=== PATIENT | male | born 1945 | race Hispanic/Latino ===

== ENCOUNTER → 2019-09-19 | Outpatient (CLI) | payer MEDICARE ==
[~2019-09-19] MED LIST: ASPI-1012 PO; HYDR-4457 PO; ROSU40TA21 PO; SLEEPING PILL PO; TYLENOL PO
[2019-09-19 14:01] LABS: BASOPHILS % (AUTO) 0.3 % (0.0-5.0); EOSINOPHILS % (AUTO) 1.6 % (0.0-8.0); LYMPHOCYTES % (AUTO) 21.2 % (21.0-51.0); MEAN CORPUSCULAR HGB CONC 33.3 g/dL (32.0-36.0); MEAN CORPUSCULAR VOLUME 89.9 fL (79-99); MONOCYTES % (AUTO) 11.5 % (3.0-13.0); NEUTROPHILS % (AUTO) 65.1 % (40.0-77.0); PLATELET COUNT (AUTO) 177 K/uL (130-400); RED BLOOD CELL COUNT(AUTO) 4.67 MIL/uL (4.50-6.20); RED CELL DISTRIBUTION WIDTH 13.1 % (11.0-15.5); WHITE BLOOD COUNT (AUTO) 7.4 K/uL (4.8-10.8)
[2019-09-19 14:09] LABS: CREATININE 0.7 mg/dL (0.5-1.5); POTASSIUM 4.5 mmol/L (3.5-5.1)
== END | disposition home or self-care (01) ==
LOC: LAB 13:05
PROVIDERS: ATTEND Urology
DX: R31.29 Other microscopic hematuria (principal)
CPT/HCPCS: 36415; 80048; 85025

== ENCOUNTER → 2019-09-20 | Outpatient (CLI) | payer MEDICARE ==
[~2019-09-20] MED LIST changes: +IOHEXOL-350 75 ML VIAL IV ONE
== END | disposition home or self-care (01) ==
LOC: RAH 08:50
PROVIDERS: ATTEND Urology
DX: M43.8X4 Other specified deforming dorsopathies, thoracic region (principal); R31.9 Hematuria, unspecified; R31.29 Other microscopic hematuria; N28.1 Cyst of kidney, acquired
CPT/HCPCS: 74178; Q9967

== ENCOUNTER 2021-01-09 09:00 | Observation (INO) | payer MEDICARE ==
[~2021-01-09] VITALS: Ht 162.6 cm; Wt 78.0 kg
[~2021-01-09 09:00] MED LIST changes: -ASPI-1012 PO; -HYDR-4457 PO; -IOHEXOL-350 75 ML VIAL IV ONE; -SLEEPING PILL PO; -TYLENOL PO
[2021-01-10 14:41] VITALS: BP 149/76
[2021-01-13] MEDS ORDERED: METF-444 PO (15:19)
[2021-01-14] VITALS (24 sets, daily range): BP systolic 106–151; BP diastolic 46–80
[2021-01-14] MEDS ORDERED: 0.9%NACL 1000ML 1,000 ML IV ONE (08:22)
[2021-01-14] MEDS: CEFAZOLIN SODIUM 1 GM VIAL IVP ONE ×2 (08:55→10:58)
[2021-01-14] MEDS ORDERED: ACET-2743 PO (09:23)
[2021-01-14] MEDS ORDERED: NAPR-1023 PO (09:23)
[2021-01-14] MEDS ORDERED: ASCO250T70 PO (09:23)
[2021-01-14] MEDS ORDERED: CYAN250014 PO (09:23)
[2021-01-14] MEDS ORDERED: TRANEXAMIC ACID 1000MG/10ML ONE ×2 (10:13)
[2021-01-14] MEDS ORDERED: PROPOFOL 10 MG/ML 20ML VIAL IV ONE ×2 (10:22→11:31)
[2021-01-14] MEDS ORDERED: GLYCOPYRROLATE 1 MG/5 ML SYRINGE ONE (10:22)
[2021-01-14] MEDS ORDERED: LIDOCAINE PF 100MG/5ML (2%) SYRINGE 5ML ONE (10:22)
[2021-01-14] MEDS ORDERED: FENTANYL CITRATE PF 50 MCG/1 ML 2ML VIAL ONE ×2 (10:23→12:51)
[2021-01-14] MEDS ORDERED: NEOSTIGMINE 5MG/5ML SYR IV ONE (10:23)
[2021-01-14] MEDS ORDERED: MIDAZOLAM HCL 1 MG/ML 2ML VIAL ONE (10:23)
[2021-01-14] MEDS ORDERED: ROCURONIUM 10MG/1ML SYR 10 MG/ML ML ONE (10:23)
[2021-01-14] MEDS ORDERED: CEFAZOLIN SODIUM 1 GM VIAL ONE ×4 (10:41→10:42)
[2021-01-14] MEDS ORDERED: ROPIVACAINE 0.5% 5MG/ML 30ML IJ ONE (10:44)
[2021-01-14] MEDS ORDERED: FERROUS FUMARATE 324 MG TABLET PO PRN (13:00)
[2021-01-14] MEDS ORDERED: POTASSIUM CHLORIDE 10% ELIXIR 20 MEQ/15 ML UDCUP PO PRN (13:00)
[2021-01-14] MEDS ORDERED: DiphenhydrAMINE HCL 50 MG/ML VIAL IVP PRN (13:00)
[2021-01-14] MEDS ORDERED: LIDOCAINE HCL-MPF 1% 2ML VIAL IV PRN (13:00)
[2021-01-14] MEDS ORDERED: ONDANSETRON 4MG INJ IVP PRN (13:00)
[2021-01-14] MEDS ORDERED: KCL 20 MEQ ERTAB PO PRN (13:00)
[2021-01-14] MEDS ORDERED: CALCIUM CARB 500MG PO PRN (13:00)
[2021-01-14] MEDS: ACETAMINOPHEN 500 MG TABLET PO SCH ×2 (13:00→20:20)
[2021-01-14] MEDS ORDERED: OXYCODONE HCL 5 MG TAB PO PRN (13:00)
[2021-01-14] MEDS ORDERED: POTASSIUM CHLORIDE 20MEQ/100ML 100 ML IV PRN (13:00)
[2021-01-14] MEDS ORDERED: TEMAZEPAM 15 MG CAPSULE PO PRN (13:00)
[2021-01-14] MEDS ORDERED: TRAMADOL HCL 50 MG TABLET PO PRN (13:00)
[2021-01-14] MEDS: 0.9%NACL 1000ML 1,000 ML IV SCH ×2 (13:00→22:29)
[2021-01-14] MEDS ORDERED: MEPERIDINE-PF 25 MG/ML SYG ONE ×2 (13:42→13:52)
[2021-01-14] MEDS: OXYCODONE HCL 5 MG TAB PO PRN ×2 (14:34→18:37)
[2021-01-14] MEDS: KETOROLAC 15MG/ML VIAL (15MG/ML) IV PRN ×2 (16:08→22:29)
[2021-01-14] MEDS: INSULIN HUMULIN R 100 UNIT/ML 3ML SQ SCH ×2 (17:07→20:21)
[2021-01-14] MEDS: CEFAZOLIN SODIUM 1 GM VIAL IVP SCH (17:09)
[2021-01-14] MEDS: ASPIRIN 81MG CHEW TAB PO SCH (20:19)
[2021-01-14] MEDS: CELECOXIB 200 MG CAP PO SCH (20:19)
[2021-01-14] MEDS: FAMOTIDINE 20MG TAB PO SCH (20:19)
[2021-01-14] MEDS: PREGABALIN 25 MG CAP PO SCH (20:19)
[2021-01-15] MEDS: CEFAZOLIN SODIUM 1 GM VIAL IVP SCH (02:05)
[2021-01-15 04:45] VITALS: BP 124/67
[2021-01-15 05:15] LABS: HEMATOCRIT 38.1 % (42-54); MEAN CORPUSCULAR HEMOGLOBIN 31.6 pg (27.0-33.0); MEAN CORPUSCULAR HGB CONC 33.6 g/dL (32.0-36.0); MEAN CORPUSCULAR VOLUME 94.1 fL (79-99); RED BLOOD CELL COUNT(AUTO) 4.05 MIL/uL (4.50-6.20); RED CELL DISTRIBUTION WIDTH 13.1 % (11.0-15.5); WHITE BLOOD COUNT (AUTO) 11.6 K/uL (4.8-10.8)
[2021-01-15] MEDS: ACETAMINOPHEN 500 MG TABLET PO SCH ×3 (05:22→19:52)
[2021-01-15 05:26] LABS: CREATININE 0.7 mg/dL (0.5-1.5); POTASSIUM 4.6 mmol/L (3.5-5.1)
[2021-01-15] MEDS: KETOROLAC 15MG/ML VIAL (15MG/ML) IV PRN (07:07)
[2021-01-15] MEDS: INSULIN HUMULIN R 100 UNIT/ML 3ML SQ SCH ×4 (07:30→21:14)
[2021-01-15 08:01] VITALS: BP 135/67
[2021-01-15] MEDS: 0.9%NACL 1000ML 1,000 ML IV SCH (08:36)
[2021-01-15] MEDS: TAMSULOSIN HCL 0.4 MG CAP.ER.24H PO SCH (08:38)
[2021-01-15] MEDS: PREGABALIN 25 MG CAP PO SCH ×2 (08:40→19:51)
[2021-01-15] MEDS: POLYETHYLENE GLYCOL 3350 17 GM POWD.PACK PO SCH (08:40)
[2021-01-15] MEDS: FAMOTIDINE 20MG TAB PO SCH ×2 (08:40→19:51)
[2021-01-15] MEDS: CELECOXIB 200 MG CAP PO SCH ×2 (08:40→19:51)
[2021-01-15] MEDS: ASPIRIN 81MG CHEW TAB PO SCH ×2 (08:40→19:50)
[2021-01-15] MEDS: OXYCODONE HCL 5 MG TAB PO PRN (12:06)
[2021-01-15 12:07] VITALS: BP 138/63
[2021-01-15 16:00] VITALS: BP 120/61
[2021-01-15 19:53] VITALS: BP 106/56
[2021-01-16 00:14] VITALS: BP 111/59
[2021-01-16] MEDS: ACETAMINOPHEN 500 MG TABLET PO SCH ×2 (04:13→11:21)
[2021-01-16 04:27] VITALS: BP 139/67
[2021-01-16] MEDS: INSULIN HUMULIN R 100 UNIT/ML 3ML SQ SCH ×3 (06:21→16:37)
[2021-01-16 08:13] VITALS: BP 130/64
[2021-01-16] MEDS: ASPIRIN 81MG CHEW TAB PO SCH (08:14)
[2021-01-16] MEDS: PREGABALIN 25 MG CAP PO SCH (08:14)
[2021-01-16] MEDS: CELECOXIB 200 MG CAP PO SCH (08:14)
[2021-01-16] MEDS: TAMSULOSIN HCL 0.4 MG CAP.ER.24H PO SCH (08:15)
[2021-01-16] MEDS: POLYETHYLENE GLYCOL 3350 17 GM POWD.PACK PO SCH (08:15)
[2021-01-16] MEDS: FAMOTIDINE 20MG TAB PO SCH (08:16)
[2021-01-16] MEDS ORDERED: SIMV-46 PO (11:09)
[2021-01-16] MEDS: OXYCODONE HCL 5 MG TAB PO PRN ×2 (11:19→16:12)
[2021-01-16 11:25] VITALS: BP 137/61
[2021-01-16 17:13] VITALS: BP 129/64
[2021-01-16] MEDS ORDERED: HYDR-4060 PO (17:14)
[2021-01-16] MEDS ORDERED: ASPI-1005 PO (17:14)
[2021-01-16] MEDS ORDERED: SIMVASTATIN 20 MG TABLET PO SCH (21:00)
[2021-01-17] MEDS ORDERED: METFORMIN HCL 500 MG TABLET PO SCH (09:00)
[2021-01-17] MEDS ORDERED: ASCORBIC ACID 500 MG TAB PO SCH (09:00)
[2021-01-17] MEDS ORDERED: CYANOCOBALAMIN (VITAMIN B-12) 1,000 MCG TABLET PO SCH (09:00)
[2021-01-17] MEDS ORDERED: BISACODYL 10 MG SUPP.RECT RC PRN (13:00)
== END 2021-01-16 18:07 ==
LOC: DAHIP 01-14 07:48 → EDSTATUS 01-14 09:00 → 4AH 01-14 14:29
PROVIDERS: ADMIT Orthopaedic Surgery; ATTEND Orthopaedic Surgery
DX: M17.11 Unilateral primary osteoarthritis, right knee (principal); Z20.822 Contact with and (suspected) exposure to COVID-19; E11.9 Type 2 diabetes mellitus without complications; E78.5 Hyperlipidemia, unspecified; M54.9 Dorsalgia, unspecified; G89.29 Other chronic pain; Z98.890 Other specified postprocedural states; Z96.652 Presence of left artificial knee joint
CPT/HCPCS: 27447; 36415; 80048; 82948 ×11; 85027; 87088; 87635; 87641; 88305; 88311; 96361 ×2; 96374; 96375; 96376 ×2; 97039 ×5; 97116 ×4; 97161; 97530 ×4; A4215; A4221; A4222; A4223; A4649 ×3; A4663; A4930 ×2; A5120; A9272; C1776; G0378 ×47; G8978; G8979; G8980; G8981; G8982; G8983; J0690 ×7; J1815 ×6; J1885 ×3; J2001; J2175 ×2; J2250; J2704 ×2; J2710; J2795; J3010 ×2; J3490 ×3; J7030; J7120